=== PATIENT | female | born 1940 | race Caucasian/White ===

== ENCOUNTER 2020-04-18 18:21 | Inpatient (IN) | payer OTHER ==
[~2020-04-18] VITALS: Ht 165.1 cm; Wt 60.1 kg
[2020-04-18 18:23] VITALS: BP 117/61
[2020-04-18 19:38] LABS: ABSOLUTE NEUTROPHILS 11.1 thou/uL (1.4-8.2); BASOPHILS 0.7 % (0.0-2.0); HEMOGLOBIN 12.2 gm/dL (12.0-15.0); LYMPHOCYTES 20.2 % (24.0-44.0); MCH 27.9 pg (26.0-34.0); MCV 84.5 fL (80.0-100.0); MONOCYTES 8.8 % (1.0-8.0); PLATELET COUNT 292 thou/uL (150-400); POLYS 70.3 % (36.0-66.0); RBC 4.38 mil/uL (4.20-5.00); RDW 13.1 % (10.5-14.5); WBC 15.8 thou/uL (4.0-11.0)
[2020-04-18 19:42] LABS: CALCIUM 9.1 mg/dL (8.5-10.1); CREATININE 1.2 mg/dL (0.6-1.0); POTASSIUM 4.3 mmol/L (3.5-5.1)
[2020-04-18 19:51] LABS: ALBUMIN 3.4 g/dL (3.4-5.0); TOTAL BILIRUBIN 0.7 mg/dL (0.2-1.0); TROPONIN-I 0.06 ng/mL (<0.06)
[2020-04-18] MEDS ORDERED: LISINOPRIL10 MG PO (22:21)
[2020-04-18] MEDS ORDERED: CYCLOBENZAPRINE10 MG PO (22:21)
[2020-04-18 23:54] VITALS: BP 152/97
[2020-04-18 23:58] VITALS: BP 147/101
[2020-04-19] VITALS (27 sets, daily range): BP systolic 98–148; BP diastolic 57–114
[2020-04-19 06:03] LABS: HEMATOCRIT 32.7 % (37.0-47.0); HEMOGLOBIN 10.7 gm/dL (12.0-15.0); MCH 27.5 pg (26.0-34.0); MCHC 32.7 g/dL (28.0-37.0); MCV 84.1 fL (80.0-100.0); RBC 3.89 mil/uL (4.20-5.00); RDW 13.3 % (10.5-14.5); WBC 12.3 thou/uL (4.0-11.0)
[2020-04-19 06:26] LABS: CALCIUM 8.8 mg/dL (8.5-10.1); CREATININE 0.9 mg/dL (0.6-1.0); POTASSIUM 3.7 mmol/L (3.5-5.1)
--- NOTE | 2020-04-19 07:19 | EKG ---
[facility] [place] [address] ELECTROCARDIOGRAM REPORT Name: ARCELIA RIVAS Room #: 206-P ADM IN M.R.#: [id number] Admission: 04/18/20 Attend Phys: Toni Hernandez MD Discharge: Date of : 36 Report #: [id number] THIS REPORT FOR: cc: Tamiko Han MD, Constance M. MD Santiago, Patrick MD [facility] ~ THIS REPORT FOR: //name// [facility] ED Test Date: 2020-04-18 Test Time: 22:24:09 Pat Name: ARCELIA RIVAS Department: Room: 206 Gender: F Sewing Department Supervisor: [facility] : 1940 Requested By: Nikia Bennett Order Number: [id number] MD: Alan Pugh Measurements Intervals [place] Rate: 91 P: -33 OK: 136 QRS: 42 QRSD: 68 T: 60 QT: 369 QTc: 455 Interpretive Statements Sinus rhythm Left ventricular hypertrophy Anterior Q waves, possibly due to LVH No previous ECG available for comparison Electronically Signed On 04-19-2020 7:19:08 BIOMEDICAL EQUIPMENT TECH by Alan Pugh [email or web address] <ELECTRONICALLY SIGNED> By: Alan Pugh MD, FACC 04/19/20 0719 23 Alan Pugh MD, [facility] /EPI
--- NOTE | 2020-04-19 07:38 | NUR ---
PATIENTS CARES WERE STARTED AFTER HER TRANSFER OVER FROM ER. PATIENT WAS RECIEVED, ADMITTED AND ASSESSED. PATIENT CAME TO THE UNITE WITH AN AMIO DRIP GOING. CALLed to get a new order for amio drip to continue. papers at the bedside that need signed by the patient. patient c/o pain in the neck and both shoulders. 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 the bed is in a low and locked position.
--- NOTE | 2020-04-19 09:07 | EKG ---
[facility] [place] [address] ELECTROCARDIOGRAM REPORT Name: ARCELIA RIVAS Room #: 206-P ADM IN M.R.#: [id number] Admission: 04/18/20 Attend Phys: Toni Hernandez MD Discharge: Date of : 38 Report #: [id number] THIS REPORT FOR: cc: Tamiko Han MD, Constance M. MD Santiago, Patrick MD [facility] ~ THIS REPORT FOR: //name// [facility] ED Test Date: 2020-04-18 Test Time: 23:05:46 Pat Name: ARCELIA RIVAS Department: Room: 206 Gender: F Site Safety Manager: yoel bran : 1940 Requested By: Paulette Garcia Order Number: [id number] MD: Alan Pugh Measurements Intervals [place] Rate: 94 P: 64 SD: 139 QRS: -6 QRSD: 76 T: 55 QT: 351 QTc: 439 Interpretive Statements Sinus rhythm Ventricular premature complex Consider left ventricular hypertrophy Anterior Q waves, possibly due to LVH Compared to ECG 04/18/2020 22:24:09 Ventricular premature complex(es) now present Electronically Signed On 04-19-2020 9:07:03 MILL CRANE OPERATOR by Alan Pugh [email or web address] <ELECTRONICALLY SIGNED> By: Alan Pugh MD, FACC 04/19/2007 04 04 Alan Pugh MD, FACC /EPI
--- NOTE | 2020-04-19 09:07 | EKG ---
[facility] [place] [address] ELECTROCARDIOGRAM REPORT Name: ARCELIA RIVAS Room #: 206-P ADM IN M.R.#: [id number] Admission: 04/18/20 Attend Phys: Toni Hernandez MD Discharge: Date of : 36 Report #: [id number] THIS REPORT FOR: cc: Tamiko Han MD, Constance M. MD Santiago, Patrick MD [facility] ~ THIS REPORT FOR: //name// [facility] Test Date: 2020-04-19 Test Time: 07:33:12 Pat Name: ARCELIA RIVAS Department: Room: [facility] Gender: F Wet Process Head Miller: [place] : 1940 Requested By: Nikia Bennett Order Number: [id number] MD: Alan Pugh Measurements Intervals [place] Rate: 78 P: 24 LA: 140 QRS: -21 QRSD: 79 T: 55 QT: 401 QTc: 457 Interpretive Statements Sinus rhythm Borderline left axis deviation Anteroseptal infarct, age indeterminate Compared to ECG 04/18/2020 23:05:46 Myocardial infarct finding now present Ventricular premature complex(es) no longer present Left ventricular hypertrophy no longer present Q waves no longer present Electronically Signed On 04-19-2020 9:07:10 EXTENSION AGENT by Alan Pugh [email or web address] <ELECTRONICALLY SIGNED> By: Alan Pugh MD, FACC 04/19/20906 2 2 Alan Pugh MD, [facility] /EPI
[2020-04-19 10:17] LABS: % SATURATION 6 % (20-39); IRON 14 ug/dL (50-170); TIBC 246 ug/dL (250-450)
--- NOTE | 2020-04-19 13:10 | 2DMMODE ---
[facility] [address] [place] [address] 2 D/M-MODE ECHOCARDIOGRAM Name: ARCELIA RIVAS Room #: 206-P ADM IN M.R.#: [id number] Admission: 04/18/20 Attend Phys: Toni Hernandez MD Discharge: Date of : 36 Report #: [id number] THIS REPORT FOR: cc: Tamiko Han MD, Constance M. MD Lammoglia, Francisco J. MD ~ APPROVED REPORT Study performed: 04/19/2020 11:52:10 EXAM: Comprehensive 2D, Doppler, and color-flow Echocardiogram Patient Location: Bedside Room #: 206 Status: routine BSA: 1.65 HR: 74 bpm BP: 142/114 mmHg Rhythm: NSR Other Information Study Quality: Good Indications Dyspnea Chest Pain Ascending aortic aneurysm 2D Dimensions RVDd: 41.52 mm IVSd: 9.53 (7-11mm) LVOT Diam: 18.13 (18-24mm) LVDd: 46.49 mm PWd: 8.54 (7-11mm) Ascending Ao: 48.64 (22-36mm) LVDs: 34.97 (25-40mm) Aortic Root: 30.50 mm IVC: 19.00 mm Aortic Valve AoV Peak Merlin.: 1.41 m/s AO Peak Gr.: 7.97 mmHg LVOT Max P.12 mmHg LVOT Max V: 1.13 m/s ZOHRA Vmax: 2.07 cm2 Mitral Valve E/A Ratio: 1.8 MV Decel. Time: 134.02 ms [facility] [address] [place] [address] 2 D/M-MODE ECHOCARDIOGRAM Name: ARCELIA RIVAS Room #: 206-P ADM IN .R.#: [id number] Admission: 04/18/20 Attend Phys: Nettie Montoya Discharge: Date of : 36 Report #: [id number] MV E Max Merlin.: 0.90 m/s MV A Merlin.: 0.51 m/s MV PHT: 38.86 ms IVRT: 101.50 ms Pulmonary Valve PV Peak Merlin.: 0.73 m/s PV Peak Gr.: 2.20 mmHg Pulmonary Vein P Vein S: 0.48 m/s P Vein A: 0.17 m/s P Vein D: 0.19 m/s P Vein A Dur.: 124.6 msec P Vein S/D Ratio: 2.53 Tricuspid Valve TR Peak Merlin.: 2.93 m/s TR Peak Gr.: 34.23 mmHg PA Pressure: 44.00 mmHg Left Ventricle The left ventricle is normal size. There is normal LV segmental wall motion. There is normal left ventricular wall thickness. The left ventricular systolic function is normal. The left ventricular ejection fraction is within the normal range. LVEF is 55%. The left ventricular diastolic function is normal. Right Ventricle Right ventricle is dilated. The right ventricular systolic function is normal. Atria Left atrium is dilated. Right atrium is dilated. Aortic Valve The aortic valve is normal in structure. Mild aortic regurgitation. There is no aortic valvular stenosis. Mitral Valve The mitral valve is normal in structure. Mild to moderate mitral regurgitation. No evidence of mitral valve stenosis. Tricuspid Valve The tricuspid valve is normal in structure. There is moderate to severe tricuspid regurgitation. Estimated PAP 44 mmHg. There is moderate pulmonary hypertension. Pulmonic Valve [facility] [address] [place] [address] 2 D/M-MODE ECHOCARDIOGRAM Name: ARCELIA RIVAS Room #: 206-P [facility] IN M.R.#: [id number] Admission: 04/18/20 Attend Phys: Nettie Montoya Discharge: Date of : 36 Report #: [id number] The pulmonary valve is normal in structure. Trace pulmonic regurgitation. Great Vessels Aortic root is dilated. Ascending aorta is dilated at 4.9 cm IVC is normal in size and collapses <50% with inspiration. Pericardium Small hemodynamically insignificant circumferential pericardial effusion. <Conclusion> The left ventricle is normal size. LVEF is 55%. Right ventricle is dilated. The right ventricular systolic function is normal. Left atrium is dilated. Right atrium is dilated. The aortic valve is normal in structure. Mild aortic regurgitation. The mitral valve is normal in structure. Mild to moderate mitral regurgitation. The tricuspid valve is normal in structure. There is moderate to severe tricuspid regurgitation. Estimated PAP 44 mmHg. There is moderate pulmonary hypertension. The pulmonary valve is normal in structure. Trace pulmonic regurgitation. Aortic root is dilated. Ascending aorta is dilated at 4.9 cm Small hemodynamically insignificant circumferential pericardial effusion. <ELECTRONICALLY SIGNED> By: Otoniel Mejias MD 04/19/20 1309 1309 1309 Otoniel Mejias MD /INF
--- NOTE | 2020-04-19 15:38 | NUR ---
called and spoke with uri from cardiology regarding pt ct results. she said she would look at them and call back. she put in a consult for dr ibarra and he came to see pt. she then called this rn and stated that the pt needed to be transferred to icu per dr ibarra and an art line inserted. she put in transfer order and this rn paged dr yusuf. this rn also called the nursing fashion supervisor to inform her.
--- NOTE | 2020-04-19 15:49 | NUR ---
Patient admits with VTACH. She reports she lives alone in independent home. she is independent with adls. She drives, grocery shops. She is complaining of right shoulder pain. Reports no fall radio division captain. Updated RN. Patient worked with therapy, janina in process. Patients PCP Dr Tamiko Han. [facility] following.
--- NOTE | 2020-04-19 16:04 | NUR ---
I have reviewed the documentation by SAMMIE GUZMAN from 04/19/20 to 04/19/20 and I concur with it. DENYS POMPA, PT, DPT
[2020-04-19 17:39] LABS: APTT 28.7 Seconds (24.5-32.8); PROTIME 10.2 Seconds (9.3-11.4)
[2020-04-19 17:57] LABS: URINE BILIRUBIN NEGATIVE (Negative); URINE BLOOD 1+ (Negative); URINE CLARITY CLEAR; URINE COLOR YELLOW; URINE GLUCOSE-RANDOM* NEGATIVE (Negative); URINE KETONES 1+ (Negative); URINE LEUKOCYTES-REFLEX NEGATIVE (Negative); URINE NITRITE-REFLEX NEGATIVE (Negative); URINE PROTEIN (DIPSTICK) 1+ (Negative); URINE UROBILINOGEN 0.2 E.U./dl (0.2-1.0)
[2020-04-19 18:10] LABS: BACTERIA-REFLEX 1-9 Few /HPF (None Seen); CASTS None Seen /LPF (None Seen); CRYSTALS None Seen /LPF (None Seen); SQUAMOUS 0-3 Few /LPF (0-3); URINE RBC 0-2 Rare /HPF (0-2); URINE WBC-REFLEX 6-15 Few /HPF (0-5)
--- NOTE | 2020-04-19 18:40 | NUR ---
PT ARRIVED ON THE UNIT @ 1720, PT AXOX4, PT ARRIVED ON THE UNIT WITH THE ASSIST OF NAYAN FISHMAN. DR GARCIA @ THE BEDSIDE @ [address] ART LINE IN. DR CHU AT BEDSIDE @ 1800 , GIVES ORDERS FOR CARDENE GTT FOR SBP ABOVE 150. DR HARDING @ BEDSIDE @ 1815, ORDERS FOR PO HTN MEDS, RN INSTRUCTED TO GIVE PO BEFORE STARTING THE CARDENE GTT.
[2020-04-19 20:42] LABS: ALBUMIN 2.7 g/dL (3.4-5.0); CALCIUM 8.4 mg/dL (8.5-10.1); CREATININE 0.8 mg/dL (0.6-1.0); POTASSIUM 4.3 mmol/L (3.5-5.1); TOTAL BILIRUBIN 0.6 mg/dL (0.2-1.0)
[2020-04-20] VITALS (74 sets, daily range): BP systolic 65–160; BP diastolic 47–94
--- NOTE | 2020-04-20 03:56 | NUR ---
ASSUMED PT CARE AT 1900. PT INITIALLY CONFUSED PERHAPS BECAUSE SHE WAS JUST WAKING UP FROM SLEEP. HOWEVER THROUGH THE NOC, PT WAS A&0X4. AROUND 2029, BP STARTED TO TREND UP TP 160s SO CARDENE GTT WAS STARTED AT 2.5MG. CARDENE GTT TURNED OFF AT 2311. PT SYSTOLIC CAME DOWN TO 90s. PT STAYED OFF THE CARDENE GTT FOR THE REST OF THE NIGHT. SHE HOWEVER HAD MUTIPLE EPISODES OF NON SUSTAINED VTACH; ALTHOUGH REMAINED ASYMTOMATIC. PT REMAINS STABLE, SHE VOIDS, AND A STAND BY ASSIST. WILL CONTINUE TO CLOSELY MONITOR.
[2020-04-20 08:18] LABS: CALCIUM 8.7 mg/dL (8.5-10.1); CREATININE 0.8 mg/dL (0.6-1.0); POTASSIUM 3.7 mmol/L (3.5-5.1)
[2020-04-20 09:28] LABS: HEMATOCRIT 32.5 % (37.0-47.0); HEMOGLOBIN 10.7 gm/dL (12.0-15.0); MCH 27.6 pg (26.0-34.0); MCHC 32.9 g/dL (28.0-37.0); MCV 83.9 fL (80.0-100.0); RBC 3.87 mil/uL (4.20-5.00); RDW 13.2 % (10.5-14.5); WBC 9.8 thou/uL (4.0-11.0)
--- NOTE | 2020-04-20 09:37 | NUR ---
TOOK OVER PATIENT CARE AT 0700. PATIENT IS AWAKE AND ORIENTED BUT A LITTLE CONFUSED. SHE ASKED ME TO TELL HER AGAIN WHY SHE WAS HERE AND WHAT WAS GOING ON WITH HER HEART. SHE IS ALSO VERY CONCERNED ABOUT GAINING WEIGHT AND CLAIMS SHE TRIED TO KEEP HER WEIGHT AT 125 AND SHE IS UP TO 130 AND WAS HAPPY TO HEAR WE WEREN'T GIVING HER ANYTHING FOR NUTRITION BECAUSE SHE REALLY WANTS TO LOSE WEIGHT.
--- NOTE | 2020-04-20 10:00 | NUR ---
cm notified by bedside nurse that pt wants to work on "her end of life paper work"/lorrine . cm notified spiritual care and will make visit. no anticipated dc over. will cont following as needed for dc needs.
--- NOTE | 2020-04-20 10:08 | EKG ---
[facility] [place] [address] ELECTROCARDIOGRAM REPORT Name: ARCELIA RIVAS Room #: 249-P ADM IN M.R.#: [id number] Admission: 04/18/20 Attend Phys: Toni Hernandez MD Discharge: Date of : 38 Report #: [id number] THIS REPORT FOR: cc: Tamiko Han MD, Constance M. MD Lammoglia, Francisco J. MD ~ THIS REPORT FOR: //name// [facility] Test Date: 2020-04-20 Test Time: 07:40:23 Pat Name: ARCELIA RIVAS Department: Room: 249 P Gender: F Overhead Door Technician: SBUOW : 1940 Requested By: Paulette Garcia Order Number: [id number] MD: Otoniel Mejias Measurements Intervals [place] Rate: 112 P: [place]: QRS: -12 QRSD: 82 T: 99 QT: 336 QTc: 459 Interpretive Statements Atrial fibrillation Anteroseptal infarct, age indeterminate Compared to ECG 04/19/2020 07:33:12 Sinus rhythm no longer present ent Electronically Signed On 04-20-2020 10:08:40 LABOR RELATIONS SUPERVISOR by Otoniel Mejias [email or web address] <ELECTRONICALLY SIGNED> By: Otoniel Mejias MD 04/20/20 1008 9 Otoniel Mejias MD /EPI
[2020-04-21] VITALS (26 sets, daily range): BP systolic 96–154; BP diastolic 40–88
--- NOTE | 2020-04-21 04:18 | NUR ---
Called into pt's room multiple times, for complaints of loud noises that wake her up, with the worst episode this morning at 0400, she was sobbing, would not redirect, accusing the staff of deliberately making noise to wake her up. She asked if it was windy outside, that there was a terrible noise keeping her awake, (it was likely the soft hum of the air handlers). Every effort had been made to quiet the room, the monitor had been placed in night mode at the start of the shift, the screen was dimmed, the alarms were significantly lower, but still this wasn't quiet enough. She then reported the alarms for other patients were too loud, the doors to her room were checked, locked and re-locked, (which DID sound quieter). This freelance copywriter offered to put some soft music on the radio, to which she yelled, "that won't work, nothing can drown the sounds out". She is emotionally distressed, hypersensitive to any and every sound present, she was given prn meds for discomfort/pain and to help her get some rest, with decreasing effectiveness noted. Finally, the monitor was placed in Privacy mode, and she is quiet at this time. Will continue to monitor.
--- NOTE | 2020-04-21 11:04 | HC ---
[facility] [place] [address] CONSULTATION Name: ARCELIA RIVAS Room #: 249-P ADM IN M.R.#: [id number] Admission: 04/18/20 Attend Phys: Toni Hernandez MD Discharge: Date of : 36 Report #: [id number] THIS REPORT FOR: cc: Tamiko Han MD, Constance M. MD Forman, John M. MD ~ We were asked to see Claudia Rivas by Dr. Barton and Dr. Menchaca. HISTORY OF PRESENT ILLNESS: The patient is an 79-year-old with dilated and irregular ascending aorta. The patient presents with 1 month of right-sided neck pain. The patient states she has seen a chiropractor and had a significant amount of relief since seeing the chiropractor, but a recrudescence of pain led her to her local physician, Dr. Han, who obtained pulmonary embolism study, no embolism was seen, but there was an irregular dilated ascending aorta. The patient was referred to this facility with additional complaints of chest pain and shortness of breath. The patient states that Aleve improved the chest pain. The patient also has a small pericardial effusion on the CT scan and the dilated ascending aorta. A repeat CT scan was done today that shows similar findings. The patient had been noted to have short runs of unsustained V-tach and was started on IV amiodarone. Currently, the patient is complaining of right shoulder discomfort radiating from the neck. PAST MEDICAL HISTORY: Significant for hypertension. MEDICATIONS AT HOME: Includes lisinopril and cyclobenzaprine. ALLERGIES: None known. SOCIAL HISTORY: The patient is not a smoker. She lives in [place] and had been an active person until approximately 1 month ago when she began to have her neck discomfort. REVIEW OF SYSTEMS: CONSTITUTIONAL: Denies fever, chills, weight change. EYES: Denies vision change. HEENT: Denies headache, hearing loss, sinus discomfort. RESPIRATORY: As mentioned shortness of breath with exertion. No cough, no hemoptysis, No sputum. CARDIAC: Denies angina. Denies palpitations. GASTROINTESTINAL: Denies nausea, vomiting, abdominal pain. GENITOURINARY: Denies burning, frequency, urgency. MUSCULOSKELETAL: Complains of right neck pain, also had left lower extremity weakness and pain that the patient states has resolved. SKIN: Denies rash or infection. NEUROLOGIC: Denies focal motor or sensory dysfunction. [address] [address] CONSULTATION Name: ARCELIA RIVAS Room #: 249-P [facility] IN ..#: [id number] Admission: 04/18/20 Attend Phys: Toni Hernandez MD Discharge: Date of : 36 Report #: [id number] PHYSICAL EXAMINATION: GENERAL: The patient is sitting in a chair in the corner of a dark room. VITAL SIGNS: Blood pressure 101/65, heart rate 67, temperature 36.6, O2 sat 96 on room air. HEENT: No scleral icterus, no arcus. NECK: I hear no bruit, no mass. CHEST: Clear to auscultation. HEART: Rhythm regular, no murmur. ABDOMEN: Soft, no mass. EXTREMITIES: No clubbing, cyanosis or edema. The patient is a thin woman with an ectomorphic habitus. PSYCHIATRIC: Oriented and appropriate. Affect flat and appears to be worried person. ASSESSMENT: Certainly, the ascending aorta is dilated and irregular. There may be penetrating ulcers or irregularities. It is not clear whether this is new or old. 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 From the surgical point of view, we can either proceed with aggressive heart rate and blood pressure control and repeat study versus surgery at this point in this lady of advanced age with relatively nonfocal symptoms. I have discussed with Dr. Menchaca and we have opted for aggressive medical management with including transfer to the Intensive Care Unit with repeat imaging later in the hospitalization, so that we can assess whether or not there is any change if this is an acute discovery of a chronic problem or whether this was indeed an acute problem. We will follow the patient along with you. Thank you for the consult. <ELECTRONICALLY SIGNED> By: Nate Ta MD 04/21/20 1104 1633 0247 Nate Ta MD /nt
--- NOTE | 2020-04-21 11:20 | EKG ---
[facility] [place] [address] ELECTROCARDIOGRAM REPORT Name: ARCELIA RIVAS Room #: 249-P ADM IN M.R.#: [id number] Admission: 04/18/20 Attend Phys: Toni Hernandez MD Discharge: Date of : 36 Report #: [id number] THIS REPORT FOR: cc: Tamiko Han MD, Constance M. MD Lammoglia, Francisco J. MD ~ THIS REPORT FOR: //name// [facility] Test Date: 2020-04-20 Test Time: 19:06:36 Pat Name: ARCELIA RIVAS Department: Room: 249 P Gender: F Office Services Representative: Patti ANGEL : 1940 Requested By: Jesús Menchaca Order Number: [id number] MD: Otoniel Mejias Measurements Intervals [place] Rate: 114 P: [place]: QRS: -2 QRSD: 84 T: 52 QT: 365 QTc: 503 Interpretive Statements Atrial fibrillation Anteroseptal infarct, age indeterminate Frequent PVC Compared to ECG 04/20/2020 07:40:23 PVC are now noted Electronically Signed On 04-21-2020 11:19:50 SOCIAL SERVICES DESIGNEE by Otoniel Mejias [email or web address] <ELECTRONICALLY SIGNED> By: Otoniel Mejias MD 04/21/20 1119 1906 1906 Otoniel Mejias MD /EPI
--- NOTE | 2020-04-21 15:31 | NUR ---
ALERT AND ORIENTED AND VITALS STABLE. MEDICATED FOR PAIN WITH PRN MEDS. UP TO BATHROOM WITH STANDBY ASSISTANCE. TOLERATING DIET W/O NAUSEA. SON CAME IN TO VISIT AND REQUESTED A PHONE CALL FROM PHYSICIANMessi MADDEN TEXT SENT TO DR. REYNOLDS AND MESSAGED BACK STATING HE WOULD CALL. ASSESSMENT DOCUMENTED. WILL CONTINUE WITH POC.
--- NOTE | 2020-04-21 23:57 | NUR ---
AROUND 0 NURSE WAS BROUGHT INTO THE ROOM BY PATIENT YELLING. PATIENT WAS IRATE BECAUSE SHE "KEEPS HEARING BEEPING SOUNDS". NURSE INSTRUCTED PATIENT THAT HE WOULD DO EVERYTHING IN HIS POWER TO KEEP LIGHTS AND SOUND AT A MINIMUM, BUT A CERTAIN LEVEL OF OBSERVATION AND MEDICAL EQUIPMENT WOULD BE NECESSARY DUE TO PATIENTS CONDITION. PATIENT EXHIBITED SIGNS OF PARANOIA WHEN SHE SAID THAT OTHER STAFF MEMBERS WERE "LYING TO ME" WHEN ACCORDING TO HER THEY SAID THEY DID NOT HEAR ALARMS. PATIENT BECAME MORE AGITATED AND UPSET LEADING THIS NURSE TO ASK FELLOW RN IN POD TO COME IN AND WITNESS CONVERSATION. PATIENT ASKED FELLOW RN IF SHE "THINKS THERE IS A CONSPIRACY AGAINST ME" DUE TO ACTIONS BY SON WHICH WERE UNKNOWN TO EITHER RN'S AT BEDSIDE. PATIENT REMAINS ALERT AND ORIENTED BUT GROWING SIGNS OF FORGETFULLNESS AND DELIRIUM. DUE TO SPIKE IN PATIENT BLOOD PRESSURE, CARDENE GTT INITIATED AND ONE TIME ORDER FOR MEDICATION TO RELAX PATIENT ORDERED.
[2020-04-22] VITALS (24 sets, daily range): BP systolic 100–154; BP diastolic 65–105
--- NOTE | 2020-04-22 05:26 | NUR ---
ASSUMED PATIENT CARE AT 1845. VITAL SIGNS STABLE WITH PATIENT HAVING NO COMPLAINTS OF NAUSEA. PATIENT DID COMPLAIN OF PAIN IN RIGHT NECK/SHOULDER ONCE AND WAS TREATED APPROPRIATELY THROUGH MEDICATIONS AND REPOSITIONING. PATIENT IS MOSTLY ORIENTED BUT FORGETFUL AND FRUSTRATED. BREATHING STABLE ON ROOM AIR EVIDENCED BY ASSESSMENTS. CARDENE GTT AT 2.5 DUE TO HYPERTENSION TO MAINTAIN SBP < 150. UP MULTIPLE TIMES TO THE BATHROOM WITH STANDBY ASSIST. PATIENT IS ANXIOUS TO DISCHARGE AND SEVERAL TIMES STATED HOW UNHAPPY SHE IS. CTA OF CHEST/ABD/PELVIS PLANNED FOR EARLY TODAY. CONTINUE PLAN OF CARE.
[2020-04-23] VITALS (15 sets, daily range): BP systolic 108–143; BP diastolic 58–94
--- NOTE | 2020-04-23 05:03 | NUR ---
Assumed pt care at 1900. Pt is alert and oriented but forgetful. No sign of distress noted in pt. Denies pain. Fall precaution in place. Assessment completed and documented. Scheduled meds administered to pt. Tolerated PO intake. Heart rhthym went from NSR to AFIB over the night but with controlled rate. No acute events noted through the night. Continue to monitor patient. No further needs at this time.
--- NOTE | 2020-04-23 08:44 | NUR ---
ASSUMED CARE OF THE PATIENT AT 0700. THE PATIENT WOKE UP VERY CONFUSED THIS MORNING. SHE THOUGHT SHE WAS IN THE KITCHEN OF A FRIEND AND THAT SHE WAS IN [place]. SHE DIDN'T REALIZE SHE WAS IN THE HOSPITAL AND WHEN I TOLD HER WHERE SHE WAS SHE DIDN'T REMEMBER BEING IN THE HOSPITAL OR WHY SHE WAS HERE. SHE KEPT TELLING ME SHE JUST COULDN'T PUT IT ALL TOGETHER.
--- NOTE | 2020-04-23 16:20 | NUR ---
TO UNIT FROM ICU AT 1550. AMBULATING IN ROOM, GAIT STEADY. ADULT SON AT BEDSIDE. DENIES SOA, CP. NO C/O. AFIB PER TELE. WILL CONTINUE TO FOLLOW CLOSELY.
[2020-04-24 02:40] VITALS: BP 156/75
[2020-04-24 02:41] VITALS: BP 150/76
--- NOTE | 2020-04-24 03:21 | NUR ---
CARE ASSUMED 1900. PT ALERT AND ORIENTED. DENIES PAIN. PT CONTINUE TO HAVE EPISODES NONE SUSTAINING VTACHs, DENIES ANY SYMPTOMS. PT BP AT AROUND 3 AM WAS 150/76, PT HAS A PSEUDIANEURISM OF THE AORTA. NPO NOTIFIED. ONE TIME ORDER FOR HYDRALAZINE GIVEN. WILL CONTINUE TO MONITOR PTs BPs AND ANY SYMPTOMS. WILL CONTINUE WITH POC.
[2020-04-24 04:30] VITALS: BP 119/65
[2020-04-24 08:08] VITALS: BP 145/69
[2020-04-24] MEDS ORDERED: LISINOPRIL20 MG PO (10:10)
[2020-04-24] MEDS ORDERED: METOPROLOL SUCC25 M1 PO (10:10)
[2020-04-24] MEDS ORDERED: PACERONE 200 M200 M1 PO (10:10)
[2020-04-24 10:31] VITALS: BP 145/69
--- NOTE | 2020-04-24 11:42 | NUR ---
ASSESSMENT CHARTED. PT ALERT AND ORIENTED. VSS.DENIED HAVING PAIN OR DISCOMFORT. REPORT FEELING MUCH BETTER TODAY. SEEN BY DR. REYNOLDS. ORDERS GIVEN TO DISCHARGE PT TO HOME. DISCHARGE INSTRUCTIONS GIVEN TO PT. PT VERBERLISED UNDERSTANDING.
== END 2020-04-24 11:44 | disposition home health service (06) | DRG 299 ==
LOC: ER 18:21 → ICU 22:44 → 2N 22:44 → EROBS 22:44 → 2N 04-19 00:36 → ICU 04-19 16:09 → 2N 04-23 15:41
PROVIDERS: Emergency Medicine; Internal Medicine Cardiovascular Disease; Nurse Practitioner Adult Health; Nurse Practitioner Family; Physician Assistant; ADMIT Hospitalist; ATTEND Hospitalist
DX: I71.2 Thoracic aortic aneurysm, without rupture (principal); E43 Unspecified severe protein-calorie malnutrition; R65.11 Systemic inflammatory response syndrome (SIRS) of non-infectious origin with acute organ dysfunction; N17.9 Acute kidney failure, unspecified; I31.3 Pericardial effusion (noninflammatory); E46 Unspecified protein-calorie malnutrition; I47.2 Ventricular tachycardia; G89.29 Other chronic pain; I10 Essential (primary) hypertension; I48.0 Paroxysmal atrial fibrillation; R06.00 Dyspnea, unspecified; M99.51 Intervertebral disc stenosis of neural canal of cervical region; M54.12 Radiculopathy, cervical region; M47.892 Other spondylosis, cervical region; Z20.828 Contact with and (suspected) exposure to other viral communicable diseases; Z60.2 Problems related to living alone; G47.00 Insomnia, unspecified; I27.20 Pulmonary hypertension, unspecified; M48.02 Spinal stenosis, cervical region; Z79.899 Other long term (current) drug therapy; Z68.22 Body mass index [BMI] 22.0-22.9, adult
CPT/HCPCS: 10078; 10081

== ENCOUNTER → 2020-05-06 | Outpatient (CLI) | payer OTHER ==
[~2020-05-06] MED LIST: CYCLOBENZAPRINE10 MG PO; LISINOPRIL10 MG PO; LISINOPRIL20 MG PO; METOPROLOL SUCC25 M1 PO; PACERONE 200 M200 M1 PO
== END ==
LOC: SJCVC 13:17
PROVIDERS: ATTEND Internal Medicine Cardiovascular Disease
DX: R94.31 Abnormal electrocardiogram [ECG] [EKG] (principal); I44.7 Left bundle-branch block, unspecified; I48.0 Paroxysmal atrial fibrillation; I10 Essential (primary) hypertension; I71.2 Thoracic aortic aneurysm, without rupture; E78.5 Hyperlipidemia, unspecified; Z72.89 Other problems related to lifestyle

== ENCOUNTER → 2020-05-25 | Outpatient (CLI) | payer OTHER | LOC: SJCVC 12:54 → SJCVCIMAG 12:54 | PROVIDERS: ATTEND Nurse Practitioner | DX: I08.0 Rheumatic disorders of both mitral and aortic valves (principal); I48.0 Paroxysmal atrial fibrillation; I10 Essential (primary) hypertension; E78.5 Hyperlipidemia, unspecified; I71.2 Thoracic aortic aneurysm, without rupture; Z79.899 Other long term (current) drug therapy ==

== ENCOUNTER → 2020-06-03 | Outpatient (CLI) | payer OTHER ==
[2020-06-03 12:55] LABS: CALCIUM 9.5 mg/dL (8.5-10.1); POTASSIUM 4.4 mmol/L (3.5-5.1)
== END ==
LOC: CAT 12:10
PROVIDERS: ATTEND Internal Medicine Cardiovascular Disease
DX: Z01.812 Encounter for preprocedural laboratory examination (principal); I71.2 Thoracic aortic aneurysm, without rupture; I25.10 Atherosclerotic heart disease of native coronary artery without angina pectoris; J90 Pleural effusion, not elsewhere classified; J84.10 Pulmonary fibrosis, unspecified

== ENCOUNTER → 2020-06-03 | Outpatient (CLI) | payer OTHER | LOC: SJCVC 14:15 | PROVIDERS: ATTEND Internal Medicine Cardiovascular Disease | DX: I48.0 Paroxysmal atrial fibrillation (principal); R94.31 Abnormal electrocardiogram [ECG] [EKG]; R00.0 Tachycardia, unspecified; I45.4 Nonspecific intraventricular block; I10 Essential (primary) hypertension; I71.2 Thoracic aortic aneurysm, without rupture; E78.5 Hyperlipidemia, unspecified; Z79.899 Other long term (current) drug therapy ==

== ENCOUNTER → 2020-06-10 | Outpatient (CLI) | payer OTHER ==
[~2020-06-10] VITALS: Ht 165.1 cm; Wt 57.6 kg
[~2020-06-10] MED LIST changes: +AMIODARONE HCL400 MG PO; +BYSTOLIC10 MG PO; +COZAAR 25 MG TA25 M1 PO; +DILTIAZEM ER180 M2 PO; +XARELTO15 MG PO
[2020-06-10 07:04] VITALS: BP 136/78
[2020-06-10 07:25] LABS: HEMATOCRIT 37.6 % (37.0-47.0); HEMOGLOBIN 11.9 gm/dL (12.0-15.0); MCHC 31.6 g/dL (28.0-37.0); MCV 79.3 fL (80.0-100.0); RBC 4.75 mil/uL (4.20-5.00); RDW 16.3 % (10.5-14.5); WBC 13.3 thou/uL (4.0-11.0)
[2020-06-10 07:37] LABS: CALCIUM 9.6 mg/dL (8.5-10.1); POTASSIUM 3.4 mmol/L (3.5-5.1)
--- NOTE | 2020-06-10 15:49 | CATHLAB ---
[facility] [place] [address] INVASIVE PROCEDURE REPORT Name: ARCELIA RIVAS Room #: REG JESSICA HarrisMessi#: [id number] Admission: 06/10/20 Attend Phys: Terrance Acosta MD Discharge: Date of : 36 Report #: [id number] THIS REPORT FOR: cc: Tamiko Han MD, Constance M. MD Park, Jin S. MD ~ APPROVED REPORT Study performed: 06/10/2020 07:52:13 Patient Details Patient Status: Out-Patient Room #: The patient is a 79 year-old female Event Personnel Terrance Acosta Delivery Coordinator, Lexie Little RTR Monitor, Philomena Wick RN RN, Kenya Mark RN RN, Ericka Escalante RT(R)() Scrub Procedures Performed Art Access - R femoral artery* Left Heart Cath w/or w/o Coronaries [id number] [facility] Hemostasis with Manual pressure 59304 Initial Mod Sed Same Phys/QHP Gr5y [id number] Mod Sed Same Phys/QHP Ea [id number] Indication Chest pain, This is a preop cardiac catheterization for cardiothoracic surgery due to an ascending aortic aneurysm. Risk Factors Hypercholesterolemia, Hypertension Procedure Narrative The Right Groin^ was infiltrated with 1% Lidocaine subcutaneous anesthesia. A PINNACLE 4FR Sheath #[id number] sheath was inserted into the RFA^. Coronary angiography was performed using coronary diagnostic catheters. The right coronary system was accessed and visualized with a JR4 catheter. The left coronary system was accessed and visualized with a JL4 catheter. The left ventricle was accessed and visualized with a PIGTAIL catheter. Left ventriculogram was performed in 30 degree projection. Hemostasis was obtained with manual pressure following sheath removal without any complications. The patient tolerated the procedure well and there were no complications associated with the procedure. There was no [facility] [place] [address] INVASIVE PROCEDURE REPORT Name: ARCELIA RIVAS Room #: REG [facility]#: [id number] Admission: 06/10/20 Attend Phys: Terrance Acosta MD Discharge: Date of : 36 Report #: [id number] [id number]. Intraoperative Conscious Sedation Sedation start time: 8:18 Case end Time: 8:48 Fentanyl 50 mcg Versed 1 mg Fluoro Time: 3.48 minutes Dose: DAP 1905.40 cGycm2 213 mGy Contrast Type and Amount: Omnipaque 85 ml Coronary Angiography The patient's coronary anatomy is right dominant. Diagnostic Cath Left Main The left main artery is a large-caliber vessel, appears angiographically normal. LAD The LAD is a moderate-sized caliber vessel, traversing the anterior wall and wrapping around the apex. The distal segment is tortuous. There appears to be minimal plaquing within the midsegment. Diagonal 1 This is a small to moderate-sized caliber vessel, patent with no flow-limiting lesions. Diagonal 2 This is a moderate-sized caliber vessel, patent with no flow-limiting lesions. Circumflex This is a moderate-sized caliber vessel, patent with no flow-limiting lesions. Supplies 2 OM vessels, branching off at the distal segment. OM1 This is a moderate-sized caliber vessel, patent with no flow-limiting lesions. This vessel is tortuous as it travels the lateral wall. OM2 This is a small to moderate-sized caliber vessel, patent with no flow-limiting lesions. Right Coronary The RCA is a dominant vessel, patent with no flow-limiting lesions. R PDA This is a moderate-sized caliber vessel, patent with no flow-limiting lesions. RPLV This is a moderate-sized caliber vessel, patent with no flow-limiting lesions. Left Ventriculography The left ventricle is normal in size with normal contractility. The left ventricular ejection fraction is estimated to be 55-60%. Hemodynamics [facility] [address] [place] [address] INVASIVE PROCEDURE REPORT Name: ARCELIA RIVAS Room #: REG [facility]#: [id number] Admission: 06/10/20 Attend Phys: Terrance Acosta MD Discharge: Date of : 36 Report #: [id number] The aortic pressure is 105/48 mmHg with a mean of 64 mmHg. The left ventricular pressure is 100/-16 mmHg with a mean of mmHg. The left ventricular end diastolic pressure is 5 mmHg. Conclusion 1. There is minimal plaquing noted in the mid LAD. 2. The RCA is a dominant vessel, with no flow-limiting lesions. 3. The left circumflex system is patent with no flow-limiting lesions. 4. There is normal LV systolic function. 5. Ascending aortic aneurysm. <ELECTRONICALLY SIGNED> By: Terrance Acosta MD 06/10/20 1549 1549 1549 Terrance Acsota MD /INF
== END | disposition home or self-care (01) ==
LOC: CATH 06:18
PROVIDERS: ATTEND Internal Medicine Cardiovascular Disease
DX: I71.4 Abdominal aortic aneurysm, without rupture (principal); I10 Essential (primary) hypertension; E78.5 Hyperlipidemia, unspecified; E78.00 Pure hypercholesterolemia, unspecified; I08.0 Rheumatic disorders of both mitral and aortic valves; Z82.49 Family history of ischemic heart disease and other diseases of the circulatory system; I48.0 Paroxysmal atrial fibrillation; Z79.899 Other long term (current) drug therapy; Z79.01 Long term (current) use of anticoagulants; Z79.82 Long term (current) use of aspirin

== ENCOUNTER → 2020-08-02 | Outpatient (CLI) | payer OTHER | LOC: SJCVC 13:52 | PROVIDERS: ATTEND Nurse Practitioner | DX: I45.4 Nonspecific intraventricular block (principal); R94.31 Abnormal electrocardiogram [ECG] [EKG]; I71.2 Thoracic aortic aneurysm, without rupture; I10 Essential (primary) hypertension; I48.0 Paroxysmal atrial fibrillation; E78.00 Pure hypercholesterolemia, unspecified; I49.5 Sick sinus syndrome; E78.5 Hyperlipidemia, unspecified; Z82.49 Family history of ischemic heart disease and other diseases of the circulatory system; Z79.899 Other long term (current) drug therapy; Z79.82 Long term (current) use of aspirin; Z95.0 Presence of cardiac pacemaker; Z98.890 Other specified postprocedural states ==

== ENCOUNTER → 2020-11-23 | Outpatient (CLI) | payer OTHER | LOC: SJCVCIMAG 09:00 | PROVIDERS: ATTEND Internal Medicine Cardiovascular Disease | DX: I07.1 Rheumatic tricuspid insufficiency (principal); I48.0 Paroxysmal atrial fibrillation; I10 Essential (primary) hypertension; E78.00 Pure hypercholesterolemia, unspecified; I71.2 Thoracic aortic aneurysm, without rupture; I49.5 Sick sinus syndrome; D68.59 Other primary thrombophilia; I42.9 Cardiomyopathy, unspecified; E78.5 Hyperlipidemia, unspecified; Z98.890 Other specified postprocedural states; Z72.89 Other problems related to lifestyle; Z79.899 Other long term (current) drug therapy ==

== ENCOUNTER → 2021-05-22 | Outpatient (CLI) | payer OTHER | LOC: SJCVC 10:42 | PROVIDERS: ATTEND Internal Medicine Cardiovascular Disease | DX: I48.0 Paroxysmal atrial fibrillation (principal); I71.2 Thoracic aortic aneurysm, without rupture; I49.5 Sick sinus syndrome; D68.59 Other primary thrombophilia; E78.00 Pure hypercholesterolemia, unspecified; I42.9 Cardiomyopathy, unspecified; E78.5 Hyperlipidemia, unspecified; I10 Essential (primary) hypertension; Z72.89 Other problems related to lifestyle; Z79.899 Other long term (current) drug therapy; Z82.49 Family history of ischemic heart disease and other diseases of the circulatory system ==